=== PATIENT | female | born 1955 | race Native Hawaiian/Other Pacific Islander ===

== ENCOUNTER 2016-08-13 14:16 | Outpatient (CLI) | payer OTHER ==
[2016-08-13 15:05] LABS: PLATELET COUNT 391 K/uL (152-353)
[2016-08-13 15:30] LABS: POTASSIUM 3.9 mmol/L (3.6-5.2); SODIUM 138 mmol/L (136-145)
== END 2016-08-13 19:59 | disposition home or self-care (01) ==
LOC: LABW 14:16
PROVIDERS: Nurse Practitioner
DX: R73.09 Other abnormal glucose (principal); R53.83 Other fatigue; E55.9 Vitamin D deficiency, unspecified; E78.00 Pure hypercholesterolemia, unspecified; M54.2 Cervicalgia; M54.89 Other dorsalgia
CPT/HCPCS: 36415; 80053; 80061; 82306; 82607; 83036; 84443; 85027

== ENCOUNTER 2018-05-26 13:21 | Outpatient (CLI) | payer OTHER | END 2018-05-26 23:28 | disposition home or self-care (01) | LOC: CT 13:21 | DX: R51 Headache (principal) ==

== ENCOUNTER 2019-01-20 14:52 | Outpatient (CLI) | payer OTHER | END 2019-01-20 23:49 | disposition home or self-care (01) | LOC: RAD 14:52 | DX: G89.29 Other chronic pain (principal); Z13.820 Encounter for screening for osteoporosis; N95.8 Other specified menopausal and perimenopausal disorders ==

== ENCOUNTER 2019-01-27 13:55 | Outpatient (CLI) | payer OTHER | END 2019-01-27 23:59 | disposition home or self-care (01) | LOC: LAB 13:55 | DX: K58.0 Irritable bowel syndrome with diarrhea (principal) | CPT/HCPCS: 87015; 87045; 87899 ==

== ENCOUNTER 2019-02-10 14:02 | Outpatient (CLI) | payer OTHER | END 2019-02-10 21:55 | disposition home or self-care (01) | LOC: RAD 14:02 | DX: R06.02 Shortness of breath (principal) ==